=== PATIENT | female | born 1950 | race African-American/Black ===

== ENCOUNTER → 2017-10-19 | Day surgery (SDC) | payer OTHER ==
--- NOTE | 2017-10-24 17:46 | PATH ---
Surgical Pathology Report Patient Name: DON MASON [facility]. Rec. #: [id number] /Age/Gender: 1950 (Age: 66) / F Account: [id number] Location: [facility] Taken: 10/19/2017 Received: 10/19/2017 Reported: 10/24/2017 Physicians: Orlando Zhao M.D. Specimen(s) Received RIGHT BREAST CORE BIOPSY 12:00 O'CLOCK, 1,2CM FN Clinical History Ultrasound findings: Suspicious Final Diagnosis BREAST, RIGHT, 12:00, 1-2 CM FN, BIOPSY: BREAST TISSUE WITH FOCAL ATYPICAL DUCTAL HYPERPLASIA, STROMAL FIBROSIS AND MICROCALCIFICATIONS WITHIN BLOOD VESSEL BURNHAM, STROMA AND BENIGN DUCTS. Electronically Signed Maryana Castro M.D. Gross Description Received in formalin labeled "right breast biopsy 12:00, 1-2 cm fn," is a 1.7 x 1.2 x 0.2 cm aggregate of multiple cota-yellow, irregular to cylindrical portions of fibroadipose tissue. The formalin is filtered and the specimen is entirely submitted in one cassette. Time to formalin fixation: 2 minutes Total formalin fixation time: Approximately 9 hours 10/19/2017
== END | disposition home or self-care (01) ==
LOC: FRADUS-SUR 12:26
PROVIDERS: ATTEND Family Medicine
PROC: 0HBT3ZX Excision of Right Breast, Percutaneous Approach, Diagnostic (ICD-10-PCS; principal; 2017-10-19)
DX: N63.10 Unspecified lump in the right breast, unspecified quadrant (principal); N60.31 Fibrosclerosis of right breast; N64.89 Other specified disorders of breast
CPT/HCPCS: 19083; 76642-TC-RT; 87899; 88305-TC; A4648; G0206-TC

== ENCOUNTER 2017-11-08 07:35 | Day surgery (SDC) | payer OTHER ==
[2017-11-06 17:21] VITALS: BMI 36.8
--- NOTE | 2017-11-07 10:35 | HP ---
Admitting History and Physical - Primary Care Physician PCP: Jessenia Bland - Admission Chief Complaint: Right breast atypia History of Present Illness: 66 year old postmenapausal female with screening mammogram showing bilateral calcifications and a 5mm right breast nodule Bilateral stereotactic core biopsies were bening . Right breast US core biopsy was cancelled due to nonvisualization of density. Breast MRI showed non enhancing 1.2 cm right breast mass at 12:00. US core bx showed ADH 10/19/2017. Needs excision of right ADH. History Source: Patient Limitations to Obtaining History: No Limitations - Past Medical History Cardiovascular: Yes: HTN Musculoskeletal: Yes: Osteoarthritis Additional Past Medical History: glaucoma - Smoking History Smoking history: Never smoked Have you smoked in the past 12 months: No - Alcohol/Substance Use Hx Alcohol Use: No Home Medications - Allergies Allergies/Adverse Reactions: Allergies Allergy/AdvReac Type Severity Reaction Status Date / Time No Known Allergies Allergy Verified 11/06/17 17:14 - Home Medications Home Medications: Ambulatory Orders Amlodipine Besylate 10 mg PO DAILY 11/06/17 Lisinopril 5 mg PO DAILY 11/06/17 Multivitamin [Multiple Vitamins] 1 each PO DAILY 11/06/17 Physical Examination Constitutional: Yes: Well Nourished, No Distress Breast(s): Yes: Other (large and pendulous echymosis right 11:00 Right breast mass vs hematoma 11:00. no other masses or adenopathy) Problem List - Problems (1) Atypical ductal hyperplasia of right breast Code(s): N60.91 - UNSPECIFIED BENIGN MAMMARY DYSPLASIA OF RIGHT BREAST Assessment/Plan Right breast wide excision with mammogram needle localization
[2017-11-08] MEDS ORDERED: PROPOFOL 20 ML ONE ×2 (10:09→10:18)
[2017-11-08] MEDS ORDERED: SUCCINYLCHOLINE CHLORIDE 200 MG/10 ML VIAL ONE (10:09)
[2017-11-08] MEDS ORDERED: MIDAZOLAM HCL 2 MG/2 ML SINGLE DOSE VIAL ONE ×2 (10:09→10:13)
[2017-11-08] MEDS ORDERED: ceFAZolin SODIUM 1 GM VIAL ONE (10:16)
[2017-11-08] MEDS ORDERED: DEXAMETHASONE SOD PHOSPHATE 4 MG/1 ML VIAL ONE (10:55)
[2017-11-08] MEDS ORDERED: ONDANSETRON 4 MG/2 ML VIAL ONE (10:55)
[2017-11-08] MEDS ORDERED: ONDANSETRON 4 MG/2 ML VIAL IVPUSH PRN (11:39)
[2017-11-08] MEDS ORDERED: KETOROLAC TROMETHAMINE 30 MG/1 ML VIAL IVPUSH PRN (11:39)
[2017-11-08] MEDS ORDERED: DEXTROSE 5%-0.45% SALINE 1,000 ML IV SCH (11:45)
[2017-11-08] MEDS ORDERED: KETOROLAC TROMETHAMINE 30 MG/1 ML VIAL ONE (12:30)
[2017-11-08 13:10] VITALS: TEMP 97.4
[2017-11-08 13:16] VITALS: PULSE 72
[2017-11-08 13:27] VITALS: BP 132/86
--- NOTE | 2017-11-08 14:37 | OP ---
DATE OF OPERATION: 11/08/2017 PREOPERATIVE DIAGNOSIS: Right breast atypia. POSTOPERATIVE DIAGNOSIS: Right breast atypia. PROCEDURE: Right wide excision with needle localization. SURGEON: Leighann Bland MD [facility] ASSISTANT DIRECTOR: MIKE Sumner ANESTHESIA: MAC. ANESTHESIOLOGIST: SPECIMENS: Right breast tissue. DRAINS: None. ESTIMATED BLOOD LOSS: Minimal. INDICATIONS FOR PROCEDURE: The patient is a 67-year-old woman who had an abnormal mammogram. Biopsy of the right breast showed atypia. She was recommended excision of the area. The procedure, risks and complications were discussed with her prior to surgery. DESCRIPTION OF PROCEDURE: The patient was taken to Breast Imaging, where she underwent localization of the clips in the right breast. She was then taken to ambulatory surgery where informed consent was obtained. The right breast was marked to indicate laterality. She was taken to the operating room and placed on the operating table in the supine position. She was sedated. She received antibiotics prior to surgery. Sequential compression devices were placed on both legs. The right breast was prepped and draped in the usual fashion. A timeout was performed. Examination of the right breast showed a localizing wire at the 12 o'clock position. The skin was infiltrated with 1% lidocaine. An incision was made at the superior border of the areola with a scalpel. The incision was deepened using electrocautery. Electrocautery was then used to mobilize the tissue around the needle until it was completely from the remaining breast parenchyma. The needle was disassembled and brought into the operative field. The specimen was then removed and labeled with a silk suture. The long stitch was lateral and the short stitch was superior. The specimen radiograph showed both clips and the specimen. The wound was irrigated and inspected for hemostasis. There were a couple of areas of bleeding which were controlled with electrocautery. The skin was then infiltrated with 0.25% Marcaine. The deep tissue was closed with interrupted sutures of 2-0 plain suture. The dermis was closed with interrupted sutures of 3-0 Vicryl. The skin was closed with a running subcuticular closure of 4-0 Monocryl. The wound was cleaned and covered with Steri-Strips and a sterile gauze dressing. A surgical bra was then applied. The patient tolerated the procedure well. At the end of the procedure, all sponge, lap and instrument counts were correct. She was taken to the ambulatory surgical unit in satisfactory condition. LEIGHANN BLAND M.D. [id number]
--- NOTE | 2017-11-12 14:53 | PATH ---
Surgical Pathology Report Patient Name: DON MASON [facility]. Rec. #: [id number] /Age/Gender: 1950 (Age: 67) / F Account: [id number] Location: [facility] Taken: 11/08/2017 Received: 11/08/2017 Reported: 11/12/2017 Physicians: Jessenia Bland M.D. Specimen(s) Received RIGHT BREAST WIDE EXCISION Clinical History Atypia Final Diagnosis BREAST, RIGHT, WIDE EXCISION: BENIGN BREAST TISSUE SHOWING FIBROCYSTIC CHANGES INCLUDING USUAL DUCTAL HYPERPLASIA (UDH), CYSTIC APOCRINE METAPLASIA AND CALCIFICATIONS IN ASSOCIATION WITH BLOOD VESSEL BURNHAM. NO RESIDUAL ATYPIA/ATYPICAL DUCTAL HYPERPLASIA (ADH) IS IDENTIFIED. PRIOR BIOPSY CHANGES ARE PRESENT. Electronically Signed Dee Dee Terrazas M.D. Gross Description Received in formalin, labeled "right breast wide excision," is a 2.8 x 2.5 x 2.4 cm. cota-yellow, irregular, portion of fibroadipose tissue with a needle localization wire present. There is a short suture marking the superior aspect and a long suture marking the lateral aspect, per the surgeon. There is no skin present. The specimen is inked as follows: Superior blue; inferior green; anterior and lateral red; medial yellow; deep black. The specimen is serially sectioned from anterior to deep. Sectioning reveals a 1.4 x 0.9 x 0.9 cm focus of hemorrhage surrounded by firm fibrosis. No definitive mass is identified. The specimen is entirely and sequentially submitted in 6 cassettes with the anterior margin in cassette 1 and the deep margin in cassette 6. Time to formalin fixation: 4 minutes Total formalin fixation time: Approximately 31 hours. 11/09/2017 [facility]11/09/2017
== END 2017-11-08 12:45 | disposition home or self-care (01) ==
LOC: FASU 07:35
PROVIDERS: ATTEND Surgery
PROC: 0HBT0ZX Excision of Right Breast, Open Approach, Diagnostic (ICD-10-PCS; principal; 2017-11-08 10:36)
DX: N60.91 Unspecified benign mammary dysplasia of right breast (principal); N60.81 Other benign mammary dysplasias of right breast; N60.11 Diffuse cystic mastopathy of right breast; N64.89 Other specified disorders of breast
CPT/HCPCS: 19281; 88307-TC